=== PATIENT | female | born 1940 | race Caucasian/White ===

== ENCOUNTER 2023-01-25 12:50 | Emergency (ER) | payer MEDICARE, BC ==
[2023-01-25 13:11] LABS: BASOPHILS ABSOLUTE AUTO 0.03 10^3/uL (0.00-0.50); BASOPHILS PERCENT AUTO 0.3 % (0-1); EOSINOPHILS ABSOLUTE AUTO 0.16 10^3/uL (0.00-1.50); EOSINOPHILS PERCENT AUTO 1.6 % (0-6); HEMATOCRIT 34.4 % (37.0-47.0); HEMOGLOBIN 11.8 g/dL (12.0-16.0); IMMATURE GRAN ABSOLUTE AUTO 0.09 10^3/uL (0.00-0.49); IMMATURE GRAN PERCENT AUTO 0.9 % (0.0-4.9); LYMPHOCYTES ABSOLUTE AUTO 2.47 10^3/uL (0.60-5.00); LYMPHOCYTES PERCENT AUTO 24.5 % (24-44); MEAN CORPUSCULAR HEMOGLOBIN 30.5 pg (27.0-32.0); MEAN CORPUSCULAR HGB CONC 34.3 g/dL (32.0-36.0); MEAN CORPUSCULAR VOLUME 88.9 fL (83.0-97.0); MONOCYTES ABSOLUTE AUTO 0.78 10^3/uL (0.00-1.50); MONOCYTES PERCENT AUTO 7.7 % (0-10); NEUTROPHILS ABSOLUTE AUTO 6.56 x10^3/uL (1.80-8.00); PLATELET COUNT,PLT 394 10^3/uL (150-400); RED BLOOD CELL COUNT 3.87 x10^6/uL (4.00-5.50); WHITE BLOOD CELL COUNT,WBC 10.1 10^3/uL (4.0-11.0)
[2023-01-25] MEDS ORDERED: amLODIPine 2.5 MG Tab PO STA (13:18)
[2023-01-25 13:30] LABS: ALBUMIN 3.5 g/dL (3.4-5.0); BILIRUBIN TOTAL 0.5 mg/dL (0.0-1.0); CALCIUM 9.1 mg/dL (8.4-10.1); CREATININE 0.9 mg/dL (0.6-1.0); EST CRCL DRUG DOSING (CG) 34.02 mL/min; POTASSIUM,K 3.9 mEq/L (3.5-5.0); PROTEIN TOTAL,TP 7.7 g/dL (6.4-8.2)
[2023-01-25] MEDS ORDERED: Sodium Chloride 0.9% 1,000 ML IV SCH (13:30)
[2023-01-25 13:37] LABS: PTT,PARTIAL THROMBOPLSTIN TIME 25.4 SEC (20.0-30.0)
[2023-01-25 13:56] LABS: PROTHROMBIN TIME 10.1 SEC (9.3-11.3)
[2023-01-25 14:00] LABS: APPEARANCE,URINE CLOUDY (CLEAR); BILIRUBIN,URINE NEGATIVE (NEGATIVE); COLOR,URINE YELLOW (YELLOW); GLUCOSE,URINE NEGATIVE (NEGATIVE); KETONES,URINE NEGATIVE (NEGATIVE); LEUKOCYTE ESTERASE,URINE NEGATIVE (NEGATIVE); NITRITE,URINE POSITIVE (NEGATIVE); OCCULT BLOOD,URINE NEGATIVE (NEGATIVE); PH,URINE 6.5 (4.5-8.0); PROTEIN,URINE 100 mg/dL (NEGATIVE); UROBILINOGEN,URINE 0.2 EU/dL (0.2-1.0)
[2023-01-25] MEDS ORDERED: Metoprolol Tartrate 5 MG/5 ML SDV IVPUSH ONE ×2 (14:04→15:00)
[2023-01-25 14:10] LABS: BACTERIA,URINE MANY /HPF (NOT SEEN); EPITHELIAL CELLS,URINE FEW /HPF (NOT SEEN)
[2023-01-25] MEDS ORDERED: cefTRIAXone 1 GM Vial IVPUSH ONE (14:22)
[2023-01-25 16:17] VITALS: BP 173/77; PULSE 68
== END 2023-01-25 18:00 | disposition home or self-care (01) ==
LOC: CC.ED 12:50
DX: N30.00 Acute cystitis without hematuria (principal); I10 Essential (primary) hypertension; E78.00 Pure hypercholesterolemia, unspecified; M19.90 Unspecified osteoarthritis, unspecified site; E03.9 Hypothyroidism, unspecified; Z79.899 Other long term (current) drug therapy; Z79.82 Long term (current) use of aspirin; Z20.822 Contact with and (suspected) exposure to COVID-19
CPT/HCPCS: 36415; 71045; 80053; 81001; 82150; 83690; 84484; 85025; 85610; 85730; 87086; 87088; 87186; 87804; 93005; 96361; 96374; 96375; 96376; 99285-25; A9270-GY; J0696; J3490; J7030; U0002

== ENCOUNTER 2023-02-03 06:40 | Emergency (ER) | payer MEDICARE, BC ==
[2023-02-03 07:02] VITALS: PULSE 83
[2023-02-03 07:27] VITALS: BP 160/88
[2023-02-03] MEDS: Ondansetron 4 MG/2 ML SDV IVPUSH ONE (07:41)
[2023-02-03] MEDS: Famotidine 20 MG/2 ML SDV IVPUSH ONE (07:41)
[2023-02-03] MEDS: Sodium Chloride 0.9% 500 ML IV SCH (07:42)
[2023-02-03 07:48] LABS: APPEARANCE,URINE CLEAR (CLEAR); BILIRUBIN,URINE NEGATIVE (NEGATIVE); COLOR,URINE YELLOW (YELLOW); GLUCOSE,URINE NEGATIVE (NEGATIVE); KETONES,URINE NEGATIVE (NEGATIVE); LEUKOCYTE ESTERASE,URINE NEGATIVE (NEGATIVE); NITRITE,URINE NEGATIVE (NEGATIVE); OCCULT BLOOD,URINE NEGATIVE (NEGATIVE); PROTEIN,URINE NEGATIVE (NEGATIVE); UROBILINOGEN,URINE 0.2 EU/dL (0.2-1.0)
[2023-02-03] MEDS: Ketorolac 30 MG/ML SDV IVPUSH ONE (07:48)
[2023-02-03 07:59] LABS: BASOPHILS ABSOLUTE AUTO 0.08 10^3/uL (0.00-0.50); BASOPHILS PERCENT AUTO 0.8 % (0-1); EOSINOPHILS ABSOLUTE AUTO 0.31 10^3/uL (0.00-1.50); EOSINOPHILS PERCENT AUTO 3.1 % (0-6); HEMATOCRIT 33.4 % (37.0-47.0); HEMOGLOBIN 11.4 g/dL (12.0-16.0); IMMATURE GRAN ABSOLUTE AUTO 0.14 10^3/uL (0.00-0.49); IMMATURE GRAN PERCENT AUTO 1.4 % (0.0-4.9); LYMPHOCYTES ABSOLUTE AUTO 2.39 10^3/uL (0.60-5.00); LYMPHOCYTES PERCENT AUTO 24.1 % (24-44); MEAN CORPUSCULAR HEMOGLOBIN 31.1 pg (27.0-32.0); MEAN CORPUSCULAR HGB CONC 34.1 g/dL (32.0-36.0); MEAN CORPUSCULAR VOLUME 91.3 fL (83.0-97.0); MONOCYTES ABSOLUTE AUTO 0.99 10^3/uL (0.00-1.50); NEUTROPHILS ABSOLUTE AUTO 5.99 x10^3/uL (1.80-8.00); NEUTROPHILS PERCENT AUTO 60.6 % (41-71); PLATELET COUNT,PLT 374 10^3/uL (150-400); RED BLOOD CELL COUNT 3.66 x10^6/uL (4.00-5.50); WHITE BLOOD CELL COUNT,WBC 9.9 10^3/uL (4.0-11.0)
[2023-02-03] MEDS: Metoclopramide 10 MG/2 ML SDV IVPUSH ONE (08:16)
[2023-02-03 08:20] LABS: ALBUMIN 3.3 g/dL (3.4-5.0); BILIRUBIN TOTAL 0.3 mg/dL (0.0-1.0); CALCIUM 8.7 mg/dL (8.4-10.1); CREATININE 1.2 mg/dL (0.6-1.0); EST CRCL DRUG DOSING (CG) 25.51 mL/min; POTASSIUM,K 4.5 mEq/L (3.5-5.0)
[2023-02-03 08:26] LABS: BACTERIA,URINE OCCASIONAL /HPF (NOT SEEN); EPITHELIAL CELLS,URINE MODERATE /HPF (NOT SEEN); RBC,URINE NOT SEEN /HPF (0-5); WBC,URINE 0-5 /HPF (0-5)
== END 2023-02-03 08:45 | disposition home or self-care (01) ==
LOC: CC.ED 06:40
DX: N30.00 Acute cystitis without hematuria (principal); J06.9 Acute upper respiratory infection, unspecified; E78.00 Pure hypercholesterolemia, unspecified; I10 Essential (primary) hypertension; K21.9 Gastro-esophageal reflux disease without esophagitis; M19.90 Unspecified osteoarthritis, unspecified site; E03.9 Hypothyroidism, unspecified; Z79.899 Other long term (current) drug therapy; Z79.82 Long term (current) use of aspirin; Z20.822 Contact with and (suspected) exposure to COVID-19
CPT/HCPCS: 36415; 80053; 81001; 85025; 96374; 96375; 99284; 99284-25; J1885; J2405; J2765; J3490; J7040; U0002

== ENCOUNTER 2023-02-08 09:48 | Observation (INO) | payer MEDICARE, BC ==
[2023-02-08 11:55] LABS: BASOPHILS ABSOLUTE AUTO 0.06 10^3/uL (0.00-0.50); BASOPHILS PERCENT AUTO 0.5 % (0-1); EOSINOPHILS ABSOLUTE AUTO 0.15 10^3/uL (0.00-1.50); EOSINOPHILS PERCENT AUTO 1.2 % (0-6); HEMATOCRIT 33.1 % (37.0-47.0); HEMOGLOBIN 11.4 g/dL (12.0-16.0); IMMATURE GRAN ABSOLUTE AUTO 0.21 10^3/uL (0.00-0.49); IMMATURE GRAN PERCENT AUTO 1.7 % (0.0-4.9); LYMPHOCYTES ABSOLUTE AUTO 3.03 10^3/uL (0.60-5.00); LYMPHOCYTES PERCENT AUTO 23.9 % (24-44); MEAN CORPUSCULAR HEMOGLOBIN 30.8 pg (27.0-32.0); MEAN CORPUSCULAR HGB CONC 34.4 g/dL (32.0-36.0); MEAN CORPUSCULAR VOLUME 89.5 fL (83.0-97.0); MONOCYTES ABSOLUTE AUTO 1.03 10^3/uL (0.00-1.50); MONOCYTES PERCENT AUTO 8.1 % (0-10); NEUTROPHILS ABSOLUTE AUTO 8.18 x10^3/uL (1.80-8.00); NEUTROPHILS PERCENT AUTO 64.6 % (41-71); PLATELET COUNT,PLT 364 10^3/uL (150-400); WHITE BLOOD CELL COUNT,WBC 12.7 10^3/uL (4.0-11.0)
[2023-02-08] MEDS ORDERED: Ondansetron 4 MG/2 ML SDV IVPUSH ONE (12:00)
[2023-02-08] MEDS ORDERED: Lactated Ringers 1,000 ML IV ONE (12:00)
[2023-02-08 12:09] LABS: ALANINE AMINOTRANSFERASE,ALT 42 U/L (12-78); ALBUMIN 3.5 g/dL (3.4-5.0); ALKALINE PHOSPHATASE 104 U/L (46-116); AMYLASE 43 U/L (25-115); ASPARTATE AMNIOTRANSFERASE,AST 27 U/L (15-37); BILIRUBIN TOTAL 0.3 mg/dL (0.0-1.0); BLOOD UREA NITROGEN,BUN 27 mg/dL (7-18); C-REACTIVE PROTEIN 0.21 mg/dL (<=0.30); CALCIUM 9.6 mg/dL (8.4-10.1); CARBON DIOXIDE,CO2 26 mmol/L (21-32); CHLORIDE,CL 93 mEq/L (98-106); CREATININE 1.3 mg/dL (0.6-1.0); GLUCOSE RANDOM 131 mg/dL (75-99); LIPASE 89 U/L (16-77); POTASSIUM,K 4.8 mEq/L (3.5-5.0); PROTEIN TOTAL,TP 7.1 g/dL (6.4-8.2); SODIUM,NA 129 mEq/L (136-145)
[2023-02-08] MEDS ORDERED: Iopamidol 755 Mg/ML 100 ML Bottle IVPUSH ONE (12:33)
[2023-02-08 12:44] LABS: ESTIMATED GFR 41 mL/min (>=60)
[2023-02-08 13:17] LABS: APPEARANCE,URINE CLEAR (CLEAR); BILIRUBIN,URINE NEGATIVE (NEGATIVE); COLOR,URINE YELLOW (YELLOW); GLUCOSE,URINE NEGATIVE (NEGATIVE); KETONES,URINE NEGATIVE (NEGATIVE); LEUKOCYTE ESTERASE,URINE NEGATIVE (NEGATIVE); NITRITE,URINE NEGATIVE (NEGATIVE); OCCULT BLOOD,URINE NEGATIVE (NEGATIVE); PROTEIN,URINE NEGATIVE (NEGATIVE); UROBILINOGEN,URINE 0.2 EU/dL (0.2-1.0)
[2023-02-08] MEDS ORDERED: Pantoprazole 40 MG Vial IVPUSH ONE (15:50)
[2023-02-08] MEDS ORDERED: Ondansetron 4 MG/2 ML SDV IV PRN (15:50)
[2023-02-08] MEDS ORDERED: Ondansetron 4 MG Tab.DIS PO PRN (15:50)
[2023-02-08] MEDS: Sodium Chloride 0.9% 1,000 ML IV SCH (17:16)
[2023-02-08] MEDS ORDERED: Meloxicam 7.5 MG Tab PO PRN (19:53)
[2023-02-08] MEDS ORDERED: Melatonin 3 MG Tab PO SCH (20:00)
[2023-02-08] MEDS ORDERED: atorvaSTATin 10 MG Tab PO SCH (20:00)
[2023-02-08] MEDS ORDERED: Enoxaparin 30 MG/0.3 ML Syringe SUBCUT SCH (20:00)
[2023-02-08] MEDS ORDERED: amLODIPine 2.5 MG Tab PO SCH (20:00)
[2023-02-08] MEDS: Acetaminophen 325 MG Tab PO PRN (20:58)
[2023-02-08] MEDS: Gabapentin 300 MG Cap PO SCH (21:11)
[2023-02-09] MEDS: Acetaminophen 325 MG Tab PO PRN (03:43)
[2023-02-09] MEDS: Sodium Chloride 0.9% 1,000 ML IV SCH (06:08)
[2023-02-09 07:16] LABS: BASOPHILS ABSOLUTE AUTO 0.04 10^3/uL (0.00-0.50); BASOPHILS PERCENT AUTO 0.5 % (0-1); EOSINOPHILS ABSOLUTE AUTO 0.23 10^3/uL (0.00-1.50); EOSINOPHILS PERCENT AUTO 2.7 % (0-6); HEMATOCRIT 29.2 % (37.0-47.0); IMMATURE GRAN ABSOLUTE AUTO 0.08 10^3/uL (0.00-0.49); IMMATURE GRAN PERCENT AUTO 0.9 % (0.0-4.9); LYMPHOCYTES ABSOLUTE AUTO 2.55 10^3/uL (0.60-5.00); LYMPHOCYTES PERCENT AUTO 29.9 % (24-44); MEAN CORPUSCULAR HEMOGLOBIN 30.8 pg (27.0-32.0); MEAN CORPUSCULAR HGB CONC 34.2 g/dL (32.0-36.0); MEAN CORPUSCULAR VOLUME 89.8 fL (83.0-97.0); MONOCYTES ABSOLUTE AUTO 0.68 10^3/uL (0.00-1.50); NEUTROPHILS ABSOLUTE AUTO 4.96 x10^3/uL (1.80-8.00); PLATELET COUNT,PLT 290 10^3/uL (150-400); RED BLOOD CELL COUNT 3.25 x10^6/uL (4.00-5.50); WHITE BLOOD CELL COUNT,WBC 8.5 10^3/uL (4.0-11.0)
[2023-02-09] MEDS: Gabapentin 300 MG Cap PO SCH ×2 (07:44→15:34)
[2023-02-09 07:54] LABS: CALCIUM 8.5 mg/dL (8.4-10.1); EST CRCL DRUG DOSING (CG) 30.62 mL/min
[2023-02-09] MEDS ORDERED: Levothyroxine 150 MCG Tab PO SCH (08:00)
[2023-02-09] MEDS ORDERED: Sertraline 100 MG Tab PO SCH (08:00)
[2023-02-09] MEDS ORDERED: Pantoprazole 40 MG Tab.CR PO SCH (08:00)
[2023-02-09 16:09] VITALS: BP 135/54; PULSE 76
== END 2023-02-09 17:30 | disposition home or self-care (01) ==
LOC: CC.ACU 09:48 → CC.FCMC 09:48 → UNDOADMOB 15:07 → CC.MS 15:07
PROVIDERS: ADMIT Nurse Practitioner Family; ATTEND Nurse Practitioner Family
DX: K29.00 Acute gastritis without bleeding (principal); N39.0 Urinary tract infection, site not specified; R53.83 Other fatigue; N17.9 Acute kidney failure, unspecified; R93.89 Abnormal findings on diagnostic imaging of other specified body structures; E87.1 Hypo-osmolality and hyponatremia; R53.1 Weakness; E78.00 Pure hypercholesterolemia, unspecified; I10 Essential (primary) hypertension; K21.9 Gastro-esophageal reflux disease without esophagitis; M19.90 Unspecified osteoarthritis, unspecified site; E03.9 Hypothyroidism, unspecified; Z79.890 Hormone replacement therapy; Z79.899 Other long term (current) drug therapy; Z88.8 Allergy status to other drugs, medicaments and biological substances; Z96.659 Presence of unspecified artificial knee joint; Z98.890 Other specified postprocedural states
CPT/HCPCS: 36415; 71046; 74177; 80048; 80053; 81003; 82150; 83605; 83690; 85025; 86140; 96372; 96374; A9270-GY; C9113; G0378; J1650; J2405; J7030; J7120; Q9967

== ENCOUNTER 2023-05-03 10:54 | Observation (INO) | payer MEDICARE, BC ==
[2023-05-03] MEDS ORDERED: Docusate Sodium 100 MG Cap PO PRN (13:25)
[2023-05-03] MEDS ORDERED: Sodium Chloride 0.9% 1,000 ML IV STA (13:25)
[2023-05-03] MEDS ORDERED: Promethazine 12.5 MG in Sodium Chloride 0.9% 50 ML IV PRN (13:25)
[2023-05-03] MEDS ORDERED: Acetaminophen 325 MG Tab PO PRN (13:25)
[2023-05-03] MEDS ORDERED: Ondansetron 4 MG/2 ML SDV IV PRN (13:25)
[2023-05-03] MEDS ORDERED: Polyethylene Glycol 3350 Powder 17 GM Packet PO PRN (13:25)
[2023-05-03] MEDS ORDERED: Ondansetron 4 MG Tab.DIS PO PRN (13:25)
[2023-05-03] MEDS ORDERED: Meclizine 12.5 MG Tab PO PRN (13:30)
[2023-05-03] MEDS: Dexamethasone 4 MG Tab PO SCH (15:16)
[2023-05-03] MEDS ORDERED: Non-Formulary Medication 1 Each (Brimonidine [Alphagan P 0.1% Ophth Soln] 10 ML Bottle) EYEBOTH SCH (20:00)
[2023-05-03] MEDS ORDERED: Non-Formulary Medication 1 Each (Fish Oil/Omega-3 Fatty Acids [Fish Oil 1,000 Mg] 1 GM Cap PO SCH (20:00)
[2023-05-03] MEDS ORDERED: Non-Formulary Medication 1 Each (Bimatoprost [Lumigan 0.01% Ophth Soln] 2.5 ML Bottle) EYEBOTH SCH (20:00)
[2023-05-03] MEDS: amLODIPine 10 MG Tab PO SCH (20:40)
[2023-05-03] MEDS: Beta-Carotene (Vitamin A) w/Vitamin C & E plus Minerals Tab PO SCH (20:40)
[2023-05-03] MEDS: atorvaSTATin 10 MG Tab PO SCH (20:40)
[2023-05-03] MEDS: Gabapentin 300 MG Cap PO SCH (20:40)
[2023-05-03] MEDS: Calcium Carbonate/Vitamin D3 1250 MG-5 MCG Tab PO SCH (20:41)
[2023-05-03] MEDS: Melatonin 3 MG Tab PO PRN (20:47)
[2023-05-04] MEDS: Levothyroxine 88 MCG Tab PO SCH (06:08)
[2023-05-04] MEDS: Pantoprazole 40 MG Tab.CR PO SCH (06:08)
[2023-05-04] MEDS: Cholecalciferol (Vitamin D3) 25 MCG Tab PO SCH (07:15)
[2023-05-04] MEDS: Sertraline 100 MG Tab PO SCH (07:16)
[2023-05-04] MEDS: Beta-Carotene (Vitamin A) w/Vitamin C & E plus Minerals Tab PO SCH ×2 (07:16→19:31)
[2023-05-04] MEDS: Gabapentin 300 MG Cap PO SCH ×3 (07:16→19:31)
[2023-05-04] MEDS: Ascorbic Acid 500 MG Tab PO SCH (07:16)
[2023-05-04] MEDS: Calcium Carbonate/Vitamin D3 1250 MG-5 MCG Tab PO SCH ×2 (07:16→19:31)
[2023-05-04] MEDS: Dexamethasone 4 MG Tab PO SCH (07:16)
[2023-05-04 08:00] LABS: CALCIUM 9.4 mg/dL (8.4-10.1); CREATININE 0.8 mg/dL (0.6-1.0); EST CRCL DRUG DOSING (CG) 38.27 mL/min; POTASSIUM,K 3.8 mEq/L (3.5-5.0)
[2023-05-04 08:03] LABS: BASOPHILS ABSOLUTE AUTO 0.02 10^3/uL (0.00-0.50); BASOPHILS PERCENT AUTO 0.2 % (0-1); EOSINOPHILS ABSOLUTE AUTO 0.01 10^3/uL (0.00-1.50); EOSINOPHILS PERCENT AUTO 0.1 % (0-6); HEMATOCRIT 32.3 % (37.0-47.0); HEMOGLOBIN 11.1 g/dL (12.0-16.0); IMMATURE GRAN ABSOLUTE AUTO 0.03 10^3/uL (0.00-0.49); IMMATURE GRAN PERCENT AUTO 0.3 % (0.0-4.9); LYMPHOCYTES ABSOLUTE AUTO 2.32 10^3/uL (0.60-5.00); LYMPHOCYTES PERCENT AUTO 24.6 % (24-44); MEAN CORPUSCULAR HEMOGLOBIN 31.2 pg (27.0-32.0); MEAN CORPUSCULAR HGB CONC 34.4 g/dL (32.0-36.0); MEAN CORPUSCULAR VOLUME 90.7 fL (83.0-97.0); MONOCYTES ABSOLUTE AUTO 0.55 10^3/uL (0.00-1.50); MONOCYTES PERCENT AUTO 5.8 % (0-10); NEUTROPHILS ABSOLUTE AUTO 6.52 x10^3/uL (1.80-8.00); PLATELET COUNT,PLT 296 10^3/uL (150-400); RED BLOOD CELL COUNT 3.56 x10^6/uL (4.00-5.50); WHITE BLOOD CELL COUNT,WBC 9.5 10^3/uL (4.0-11.0)
[2023-05-04] MEDS: atorvaSTATin 10 MG Tab PO SCH (19:31)
[2023-05-04] MEDS: amLODIPine 10 MG Tab PO SCH (19:31)
[2023-05-04] MEDS: Melatonin 3 MG Tab PO PRN (23:01)
[2023-05-05] MEDS: Levothyroxine 88 MCG Tab PO SCH (06:04)
[2023-05-05] MEDS: Pantoprazole 40 MG Tab.CR PO SCH (06:04)
[2023-05-05] MEDS: Calcium Carbonate/Vitamin D3 1250 MG-5 MCG Tab PO SCH (08:14)
[2023-05-05] MEDS: Beta-Carotene (Vitamin A) w/Vitamin C & E plus Minerals Tab PO SCH (08:14)
[2023-05-05] MEDS: Cholecalciferol (Vitamin D3) 25 MCG Tab PO SCH (08:14)
[2023-05-05] MEDS: Sertraline 100 MG Tab PO SCH (08:14)
[2023-05-05] MEDS: Ascorbic Acid 500 MG Tab PO SCH (08:14)
[2023-05-05] MEDS: Dexamethasone 4 MG Tab PO SCH (08:14)
[2023-05-05] MEDS: Gabapentin 300 MG Cap PO SCH (08:14)
[2023-05-05 09:17] VITALS: BP 146/62; PULSE 64
== END 2023-05-05 10:15 | disposition home or self-care (01) ==
LOC: CC.LAB 10:54 → CC.MS 13:02 → UNDOADMOB 13:02 → CC.MS 13:25
PROVIDERS: ADMIT Nurse Practitioner; ATTEND Nurse Practitioner
DX: R42 Dizziness and giddiness (principal); I10 Essential (primary) hypertension; E78.00 Pure hypercholesterolemia, unspecified; E03.9 Hypothyroidism, unspecified; K21.9 Gastro-esophageal reflux disease without esophagitis; F32.A Depression, unspecified; D32.9 Benign neoplasm of meninges, unspecified; Z79.890 Hormone replacement therapy; Z79.899 Other long term (current) drug therapy
CPT/HCPCS: 36415; 70450; 80048; 81001; 85025; 93005; 97161-GP; A9270-GY; G0378; J7030; J8540

== ENCOUNTER 2023-07-05 14:12 | Observation (INO) | payer MEDICARE, BC ==
[2023-07-05 14:45] LABS: BASOPHILS ABSOLUTE AUTO 0.03 10^3/uL (0.00-0.50); BASOPHILS PERCENT AUTO 0.4 % (0-1); EOSINOPHILS ABSOLUTE AUTO 0.05 10^3/uL (0.00-1.50); EOSINOPHILS PERCENT AUTO 0.7 % (0-6); HEMATOCRIT 35.3 % (37.0-47.0); HEMOGLOBIN 12.2 g/dL (12.0-16.0); IMMATURE GRAN ABSOLUTE AUTO 0.01 10^3/uL (0.00-0.49); IMMATURE GRAN PERCENT AUTO 0.1 % (0.0-4.9); LYMPHOCYTES ABSOLUTE AUTO 1.57 10^3/uL (0.60-5.00); LYMPHOCYTES PERCENT AUTO 21.4 % (24-44); MEAN CORPUSCULAR HEMOGLOBIN 31.4 pg (27.0-32.0); MEAN CORPUSCULAR HGB CONC 34.6 g/dL (32.0-36.0); MEAN CORPUSCULAR VOLUME 90.7 fL (83.0-97.0); MONOCYTES ABSOLUTE AUTO 0.58 10^3/uL (0.00-1.50); MONOCYTES PERCENT AUTO 7.9 % (0-10); NEUTROPHILS ABSOLUTE AUTO 5.08 x10^3/uL (1.80-8.00); NEUTROPHILS PERCENT AUTO 69.5 % (41-71); PLATELET COUNT,PLT 353 10^3/uL (150-400); RED BLOOD CELL COUNT 3.89 x10^6/uL (4.00-5.50); WHITE BLOOD CELL COUNT,WBC 7.3 10^3/uL (4.0-11.0)
[2023-07-05] MEDS ORDERED: Metoprolol Tartrate 5 MG/5 ML SDV IVPUSH ONE (14:49)
[2023-07-05] MEDS: Sodium Chloride 0.9% 1,000 ML IV SCH (14:57)
[2023-07-05 15:10] LABS: ALBUMIN 3.3 g/dL (3.4-5.0); BILIRUBIN TOTAL 0.5 mg/dL (0.0-1.0); C-REACTIVE PROTEIN 0.76 mg/dL (<=0.50); CALCIUM 9.2 mg/dL (8.4-10.1); CREATININE 0.9 mg/dL (0.6-1.0); EST CRCL DRUG DOSING (CG) 34.02 mL/min; MAGNESIUM 1.4 mg/dL (1.8-2.4); POTASSIUM,K 3.2 mEq/L (3.5-5.0); PROTEIN TOTAL,TP 7.3 g/dL (6.4-8.2); TSH ULTRASENSITIVE 0.97 uIU/mL (0.36-5.60)
[2023-07-05] MEDS ORDERED: Potassium Chloride 20 MEQ Tab.ER PO ONE (15:22)
[2023-07-05 15:27] LABS: CORONAVIRUS COVID-19 NAA NEGATIVE (NEGATIVE); INFLUENZA A NAA NEGATIVE (NEGATIVE); INFLUENZA B NAA NEGATIVE (NEGATIVE)
[2023-07-05 15:40] LABS: APPEARANCE,URINE CLEAR (CLEAR); BILIRUBIN,URINE NEGATIVE (NEGATIVE); COLOR,URINE YELLOW (YELLOW); GLUCOSE,URINE NEGATIVE (NEGATIVE); KETONES,URINE NEGATIVE (NEGATIVE); LEUKOCYTE ESTERASE,URINE NEGATIVE (NEGATIVE); NITRITE,URINE NEGATIVE (NEGATIVE); OCCULT BLOOD,URINE TRACE-INTACT (NEGATIVE); PROTEIN,URINE >=300 mg/dL (NEGATIVE); UROBILINOGEN,URINE 0.2 EU/dL (0.2-1.0)
[2023-07-05 15:46] LABS: RBC,URINE 0-5 /HPF (0-5); SQUAMOUS EPITHELIAL CELLS,UR MODERATE /HPF (NOT SEEN); WBC,URINE 0-5 /HPF (0-5)
[2023-07-05 15:47] LABS: BACTERIA,URINE FEW /HPF (NOT SEEN)
[2023-07-05] MEDS ORDERED: Ondansetron 4 MG Tab.DIS PO PRN (16:09)
[2023-07-05] MEDS ORDERED: Acetaminophen 650 MG Supp RECTAL PRN (16:09)
[2023-07-05] MEDS ORDERED: Temazepam 15 MG Cap PO PRN (16:09)
[2023-07-05] MEDS ORDERED: Ondansetron 4 MG/2 ML SDV IV PRN (16:09)
[2023-07-05] MEDS ORDERED: Polyethylene Glycol 3350 Powder 17 GM Packet PO PRN (16:09)
[2023-07-05] MEDS ORDERED: Docusate Sodium 100 MG Cap PO PRN (16:09)
[2023-07-05] MEDS: Magnesium Oxide 400 MG Tab PO SCH ×2 (16:43→20:14)
[2023-07-05] MEDS: Potassium Chloride 20 MEQ Tab.ER PO SCH (19:52)
[2023-07-05] MEDS: Gabapentin 300 MG Cap PO SCH (19:52)
[2023-07-05] MEDS: amLODIPine 10 MG Tab PO SCH (19:52)
[2023-07-05] MEDS: atorvaSTATin 10 MG Tab PO SCH (19:53)
[2023-07-05] MEDS: Acetaminophen 325 MG Tab PO PRN (19:53)
[2023-07-05] MEDS ORDERED: Non-Formulary Medication 1 Each (Fish Oil/Omega-3 Fatty Acids [Fish Oil 1,000 Mg] 1 GM Cap PO SCH (20:00)
[2023-07-06] MEDS: Sodium Chloride 0.9% 1,000 ML IV SCH ×3 (01:18→20:30)
[2023-07-06 07:41] LABS: BASOPHILS ABSOLUTE AUTO 0.04 10^3/uL (0.00-0.50); BASOPHILS PERCENT AUTO 0.5 % (0-1); EOSINOPHILS ABSOLUTE AUTO 0.25 10^3/uL (0.00-1.50); EOSINOPHILS PERCENT AUTO 3.4 % (0-6); HEMATOCRIT 32.2 % (37.0-47.0); HEMOGLOBIN 10.7 g/dL (12.0-16.0); IMMATURE GRAN ABSOLUTE AUTO 0.02 10^3/uL (0.00-0.49); IMMATURE GRAN PERCENT AUTO 0.3 % (0.0-4.9); LYMPHOCYTES ABSOLUTE AUTO 2.59 10^3/uL (0.60-5.00); LYMPHOCYTES PERCENT AUTO 35.2 % (24-44); MEAN CORPUSCULAR HEMOGLOBIN 30.9 pg (27.0-32.0); MEAN CORPUSCULAR HGB CONC 33.2 g/dL (32.0-36.0); MEAN CORPUSCULAR VOLUME 93.1 fL (83.0-97.0); MONOCYTES ABSOLUTE AUTO 0.74 10^3/uL (0.00-1.50); MONOCYTES PERCENT AUTO 10.1 % (0-10); NEUTROPHILS ABSOLUTE AUTO 3.71 x10^3/uL (1.80-8.00); NEUTROPHILS PERCENT AUTO 50.5 % (41-71); PLATELET COUNT,PLT 321 10^3/uL (150-400); RED BLOOD CELL COUNT 3.46 x10^6/uL (4.00-5.50); WHITE BLOOD CELL COUNT,WBC 7.4 10^3/uL (4.0-11.0)
[2023-07-06] MEDS: Cholecalciferol (Vitamin D3) 25 MCG Tab PO SCH (08:07)
[2023-07-06] MEDS: DULoxetine 30 MG Cap PO SCH (08:07)
[2023-07-06] MEDS: Ascorbic Acid 500 MG Tab PO SCH (08:09)
[2023-07-06] MEDS: Potassium Chloride 20 MEQ Tab.ER PO SCH ×2 (08:09→19:29)
[2023-07-06] MEDS: Gabapentin 300 MG Cap PO SCH ×3 (08:09→19:29)
[2023-07-06] MEDS: Pantoprazole 40 MG Tab.CR PO SCH (08:09)
[2023-07-06] MEDS: Levothyroxine 88 MCG Tab PO SCH (08:10)
[2023-07-06] MEDS: Magnesium Oxide 400 MG Tab PO SCH ×2 (08:10→19:31)
[2023-07-06 08:17] LABS: ALBUMIN 2.7 g/dL (3.4-5.0); BILIRUBIN TOTAL 0.4 mg/dL (0.0-1.0); CALCIUM 8.1 mg/dL (8.4-10.1); CREATININE 0.8 mg/dL (0.6-1.0); EST CRCL DRUG DOSING (CG) 38.27 mL/min; MAGNESIUM 1.5 mg/dL (1.8-2.4); POTASSIUM,K 3.7 mEq/L (3.5-5.0); PROTEIN TOTAL,TP 6.2 g/dL (6.4-8.2)
[2023-07-06] MEDS ORDERED: Magnesium Oxide 400 MG Tab PO SCH (08:30)
[2023-07-06] MEDS ORDERED: Loperamide 2 MG Cap PO PRN (10:31)
[2023-07-06] MEDS ORDERED: Enoxaparin 40 MG/0.4 ML Syringe SUBCUT SCH (12:00)
[2023-07-06] MEDS: Acetaminophen 325 MG Tab PO PRN (14:41)
[2023-07-06] MEDS: atorvaSTATin 10 MG Tab PO SCH (19:29)
[2023-07-06] MEDS: amLODIPine 10 MG Tab PO SCH (19:30)
[2023-07-07] MEDS: Sodium Chloride 0.9% 1,000 ML IV SCH (06:46)
[2023-07-07 07:42] LABS: BASOPHILS ABSOLUTE AUTO 0.02 10^3/uL (0.00-0.50); BASOPHILS PERCENT AUTO 0.2 % (0-1); EOSINOPHILS ABSOLUTE AUTO 0.26 10^3/uL (0.00-1.50); EOSINOPHILS PERCENT AUTO 3.2 % (0-6); HEMATOCRIT 31.7 % (37.0-47.0); HEMOGLOBIN 10.5 g/dL (12.0-16.0); IMMATURE GRAN ABSOLUTE AUTO 0.03 10^3/uL (0.00-0.49); IMMATURE GRAN PERCENT AUTO 0.4 % (0.0-4.9); LYMPHOCYTES ABSOLUTE AUTO 2.15 10^3/uL (0.60-5.00); LYMPHOCYTES PERCENT AUTO 26.3 % (24-44); MEAN CORPUSCULAR HEMOGLOBIN 30.9 pg (27.0-32.0); MEAN CORPUSCULAR HGB CONC 33.1 g/dL (32.0-36.0); MEAN CORPUSCULAR VOLUME 93.2 fL (83.0-97.0); MONOCYTES ABSOLUTE AUTO 0.75 10^3/uL (0.00-1.50); MONOCYTES PERCENT AUTO 9.2 % (0-10); NEUTROPHILS ABSOLUTE AUTO 4.97 x10^3/uL (1.80-8.00); NEUTROPHILS PERCENT AUTO 60.7 % (41-71); PLATELET COUNT,PLT 317 10^3/uL (150-400); WHITE BLOOD CELL COUNT,WBC 8.2 10^3/uL (4.0-11.0)
[2023-07-07] MEDS: DULoxetine 30 MG Cap PO SCH (08:06)
[2023-07-07] MEDS: Pantoprazole 40 MG Tab.CR PO SCH (08:06)
[2023-07-07] MEDS: Gabapentin 300 MG Cap PO SCH (08:07)
[2023-07-07] MEDS: Magnesium Oxide 400 MG Tab PO SCH (08:07)
[2023-07-07] MEDS: Potassium Chloride 20 MEQ Tab.ER PO SCH (08:07)
[2023-07-07] MEDS: Cholecalciferol (Vitamin D3) 25 MCG Tab PO SCH (08:08)
[2023-07-07 08:09] LABS: ALBUMIN 2.6 g/dL (3.4-5.0); BILIRUBIN TOTAL 0.4 mg/dL (0.0-1.0); CREATININE 0.8 mg/dL (0.6-1.0); EST CRCL DRUG DOSING (CG) 38.27 mL/min; MAGNESIUM 1.4 mg/dL (1.8-2.4); PROTEIN TOTAL,TP 5.9 g/dL (6.4-8.2)
[2023-07-07] MEDS: Levothyroxine 88 MCG Tab PO SCH (08:09)
[2023-07-07] MEDS: Ascorbic Acid 500 MG Tab PO SCH (08:09)
[2023-07-07 08:29] LABS: POTASSIUM,K 3.6 mEq/L (3.5-5.0)
[2023-07-07 08:37] VITALS: BP 177/82; PULSE 74
== END 2023-07-07 11:45 | disposition home or self-care (01) ==
LOC: CC.ED 14:12 → CC.MS 15:48 → UNDOADMOB 15:50 → CC.MS 15:50 → UNDOADMOB 16:08 → CC.MS 16:08
PROVIDERS: ADMIT Nurse Practitioner Family; ATTEND Nurse Practitioner Family
DX: E83.42 Hypomagnesemia (principal); E87.6 Hypokalemia; R19.7 Diarrhea, unspecified; I10 Essential (primary) hypertension; R63.0 Anorexia; R53.1 Weakness; E03.9 Hypothyroidism, unspecified; E78.00 Pure hypercholesterolemia, unspecified; Z79.890 Hormone replacement therapy; Z79.899 Other long term (current) drug therapy
CPT/HCPCS: 0240U; 36415; 71045; 80053; 81001; 83735; 84443; 84484; 85025; 86140; 87493; 93005; 93010; 97161; 97530; A9270; J1650; J3490; J7030; 99223; 99233; 99238

== ENCOUNTER 2024-05-27 11:12 | Observation (INO) | payer MEDICARE, BC ==
[2024-05-27] MEDS: Ondansetron 4 MG/2 ML SDV IVPUSH PRN (11:37)
[2024-05-27 11:39] LABS: APPEARANCE,URINE CLEAR (CLEAR); BILIRUBIN,URINE NEGATIVE (NEGATIVE); COLOR,URINE YELLOW (YELLOW); GLUCOSE,URINE NEGATIVE (NEGATIVE); KETONES,URINE NEGATIVE (NEGATIVE); LEUKOCYTE ESTERASE,URINE NEGATIVE (NEGATIVE); NITRITE,URINE NEGATIVE (NEGATIVE); OCCULT BLOOD,URINE NEGATIVE (NEGATIVE); PH,URINE 6.5 (4.5-8.0); PROTEIN,URINE NEGATIVE (NEGATIVE); UROBILINOGEN,URINE 0.2 EU/dL (0.2-1.0)
[2024-05-27 11:43] LABS: BASOPHILS ABSOLUTE AUTO 0.04 10^3/uL (0.00-0.50); BASOPHILS PERCENT AUTO 0.4 % (0-1); EOSINOPHILS ABSOLUTE AUTO 0.15 10^3/uL (0.00-1.50); EOSINOPHILS PERCENT AUTO 1.3 % (0-6); HEMATOCRIT 42.9 % (37.0-47.0); HEMOGLOBIN 14.2 g/dL (12.0-16.0); IMMATURE GRAN ABSOLUTE AUTO 0.02 10^3/uL (0.00-0.49); IMMATURE GRAN PERCENT AUTO 0.2 % (0.0-4.9); LYMPHOCYTES ABSOLUTE AUTO 3.56 10^3/uL (0.60-5.00); LYMPHOCYTES PERCENT AUTO 31.6 % (24-44); MEAN CORPUSCULAR HEMOGLOBIN 30.7 pg (27.0-32.0); MEAN CORPUSCULAR HGB CONC 33.1 g/dL (32.0-36.0); MEAN CORPUSCULAR VOLUME 92.9 fL (83.0-97.0); MONOCYTES ABSOLUTE AUTO 0.63 10^3/uL (0.00-1.50); MONOCYTES PERCENT AUTO 5.6 % (0-10); NEUTROPHILS ABSOLUTE AUTO 6.88 x10^3/uL (1.80-8.00); NEUTROPHILS PERCENT AUTO 60.9 % (41-71); PLATELET COUNT,PLT 394 10^3/uL (150-400); RED BLOOD CELL COUNT 4.62 x10^6/uL (4.00-5.50); WHITE BLOOD CELL COUNT,WBC 11.3 10^3/uL (4.0-11.0)
[2024-05-27 11:52] LABS: ALANINE AMINOTRANSFERASE,ALT 42 U/L (12-78); ALBUMIN 3.9 g/dL (3.4-5.0); ALKALINE PHOSPHATASE 145 U/L (46-116); ASPARTATE AMNIOTRANSFERASE,AST 30 U/L (15-37); BILIRUBIN TOTAL 0.5 mg/dL (0.0-1.0); BLOOD UREA NITROGEN,BUN 21 mg/dL (7-18); CALCIUM 9.4 mg/dL (8.4-10.1); CARBON DIOXIDE,CO2 27 mmol/L (21-32); CHLORIDE,CL 98 mEq/L (98-106); EST CRCL DRUG DOSING (CG) 30.08 mL/min; GLUCOSE RANDOM 171 mg/dL (75-99); POTASSIUM,K 3.9 mEq/L (3.5-5.0); SODIUM,NA 136 mEq/L (136-145)
[2024-05-27 11:53] LABS: C-REACTIVE PROTEIN < 0.50 mg/dL (<=0.50); ESTIMATED GFR 56 mL/min (>=60)
[2024-05-27] MEDS: Dexamethasone 4 MG Tab PO SCH (12:56)
[2024-05-27] MEDS ORDERED: Ondansetron 4 MG Tab.DIS PO PRN (14:00)
[2024-05-27] MEDS ORDERED: Polyethylene Glycol 3350 Powder 17 GM Packet PO PRN (14:00)
[2024-05-27] MEDS ORDERED: Docusate Sodium 100 MG Cap PO PRN (14:00)
[2024-05-27] MEDS: Gabapentin 300 MG Cap PO SCH (14:22)
[2024-05-27] MEDS: atorvaSTATin 10 MG Tab PO SCH (19:35)
[2024-05-27] MEDS: amLODIPine 2.5 MG Tab PO SCH (19:35)
[2024-05-27] MEDS: Fish Oil/Omega-3 Fatty Acids 1 Gm Cap PO SCH (19:35)
[2024-05-27] MEDS: Melatonin 3 MG Tab PO PRN (20:12)
[2024-05-28] MEDS: Acetaminophen 325 MG Tab PO PRN (00:16)
[2024-05-28 07:14] LABS: CREATININE 1.1 mg/dL (0.6-1.0); EST CRCL DRUG DOSING (CG) 27.35 mL/min; MAGNESIUM 2.1 mg/dL (1.8-2.4); POTASSIUM,K 4.1 mEq/L (3.5-5.0)
[2024-05-28 07:15] LABS: BASOPHILS ABSOLUTE AUTO 0.01 10^3/uL (0.00-0.50); BASOPHILS PERCENT AUTO 0.1 % (0-1); EOSINOPHILS ABSOLUTE AUTO 0.04 10^3/uL (0.00-1.50); EOSINOPHILS PERCENT AUTO 0.4 % (0-6); HEMATOCRIT 42.7 % (37.0-47.0); HEMOGLOBIN 14.2 g/dL (12.0-16.0); IMMATURE GRAN ABSOLUTE AUTO 0.02 10^3/uL (0.00-0.49); IMMATURE GRAN PERCENT AUTO 0.2 % (0.0-4.9); LYMPHOCYTES ABSOLUTE AUTO 2.21 10^3/uL (0.60-5.00); LYMPHOCYTES PERCENT AUTO 21.2 % (24-44); MEAN CORPUSCULAR HEMOGLOBIN 30.5 pg (27.0-32.0); MEAN CORPUSCULAR HGB CONC 33.3 g/dL (32.0-36.0); MEAN CORPUSCULAR VOLUME 91.8 fL (83.0-97.0); MONOCYTES ABSOLUTE AUTO 0.89 10^3/uL (0.00-1.50); MONOCYTES PERCENT AUTO 8.5 % (0-10); NEUTROPHILS ABSOLUTE AUTO 7.25 x10^3/uL (1.80-8.00); NEUTROPHILS PERCENT AUTO 69.6 % (41-71); PLATELET COUNT,PLT 323 10^3/uL (150-400); RED BLOOD CELL COUNT 4.65 x10^6/uL (4.00-5.50); WHITE BLOOD CELL COUNT,WBC 10.4 10^3/uL (4.0-11.0)
[2024-05-28] MEDS: Pantoprazole 40 MG Tab.CR PO SCH (07:17)
[2024-05-28] MEDS: Levothyroxine 88 MCG Tab PO SCH (07:17)
[2024-05-28] MEDS: Ascorbic Acid 500 MG Tab PO SCH (07:56)
[2024-05-28] MEDS: Cholecalciferol (Vitamin D3) 25 MCG Tab PO SCH (07:56)
[2024-05-28] MEDS: DULoxetine 30 MG Cap PO SCH (07:56)
[2024-05-28 08:16] VITALS: BP 188/85; PULSE 77
[2024-05-28] MEDS: Alum Hydrox/Mag Hydrox/Simeth 30 ML, Lidocaine 2% 15 ML PO ONE (09:10)
== END 2024-05-28 15:35 | disposition home or self-care (01) ==
LOC: CC.ED 11:12 → CC.MS 13:04 → CC.ED 13:22
PROVIDERS: ADMIT Nurse Practitioner; ATTEND Nurse Practitioner
DX: R42 Dizziness and giddiness (principal); R11.0 Nausea; D32.9 Benign neoplasm of meninges, unspecified; E78.00 Pure hypercholesterolemia, unspecified; E03.9 Hypothyroidism, unspecified; I10 Essential (primary) hypertension; Z79.899 Other long term (current) drug therapy; Z79.890 Hormone replacement therapy; Z20.822 Contact with and (suspected) exposure to COVID-19
CPT/HCPCS: 36415; 80048; 80053; 81003; 83605; 83735; 85025; 86140; 87428-QW; 93005; 96374; 99223; 99239; 99285-25; A9270-GY; G0378; J2405; J8540

== ENCOUNTER 2024-07-10 09:50 | Emergency (ER) | payer MEDICARE, BC ==
[2024-07-10 09:55] VITALS: BP 191/93; PULSE 87
[2024-07-10 10:21] LABS: APPEARANCE,URINE CLEAR (CLEAR); BASOPHILS ABSOLUTE AUTO 0.02 10^3/uL (0.00-0.50); BASOPHILS PERCENT AUTO 0.2 % (0-1); BILIRUBIN,URINE NEGATIVE (NEGATIVE); COLOR,URINE YELLOW (YELLOW); EOSINOPHILS ABSOLUTE AUTO 0.22 10^3/uL (0.00-1.50); EOSINOPHILS PERCENT AUTO 2.4 % (0-6); GLUCOSE,URINE NEGATIVE (NEGATIVE); HEMATOCRIT 40.7 % (37.0-47.0); HEMOGLOBIN 13.7 g/dL (12.0-16.0); IMMATURE GRAN PERCENT AUTO 1.1 % (0.0-4.9); KETONES,URINE TRACE mg/dL (NEGATIVE); LEUKOCYTE ESTERASE,URINE NEGATIVE (NEGATIVE); LYMPHOCYTES ABSOLUTE AUTO 1.82 10^3/uL (0.60-5.00); LYMPHOCYTES PERCENT AUTO 20.1 % (24-44); MEAN CORPUSCULAR HEMOGLOBIN 31.4 pg (27.0-32.0); MEAN CORPUSCULAR HGB CONC 33.7 g/dL (32.0-36.0); MEAN CORPUSCULAR VOLUME 93.3 fL (83.0-97.0); MONOCYTES ABSOLUTE AUTO 0.69 10^3/uL (0.00-1.50); MONOCYTES PERCENT AUTO 7.6 % (0-10); NEUTROPHILS ABSOLUTE AUTO 6.19 x10^3/uL (1.80-8.00); NEUTROPHILS PERCENT AUTO 68.6 % (41-71); NITRITE,URINE NEGATIVE (NEGATIVE); OCCULT BLOOD,URINE NEGATIVE (NEGATIVE); PLATELET COUNT,PLT 262 10^3/uL (150-400); PROTEIN,URINE NEGATIVE (NEGATIVE); RED BLOOD CELL COUNT 4.36 x10^6/uL (4.00-5.50); UROBILINOGEN,URINE 0.2 EU/dL (0.2-1.0)
[2024-07-10 10:38] LABS: ALBUMIN 3.1 g/dL (3.4-5.0); BILIRUBIN TOTAL 0.7 mg/dL (0.0-1.0); CALCIUM 9.3 mg/dL (8.4-10.1); CREATININE 0.9 mg/dL (0.6-1.0); EST CRCL DRUG DOSING (CG) 33.42 mL/min; MAGNESIUM 1.8 mg/dL (1.8-2.4); POTASSIUM,K 4.3 mEq/L (3.5-5.0); PROTEIN TOTAL,TP 7.3 g/dL (6.4-8.2)
[2024-07-10] MEDS: Sodium Chloride 0.9% 500 ML IV SCH (11:32)
== END 2024-07-10 14:05 | disposition home or self-care (01) ==
LOC: CC.ED 09:50
DX: R42 Dizziness and giddiness (principal); I10 Essential (primary) hypertension; E78.00 Pure hypercholesterolemia, unspecified; K21.9 Gastro-esophageal reflux disease without esophagitis; E03.9 Hypothyroidism, unspecified; Z79.890 Hormone replacement therapy; Z79.899 Other long term (current) drug therapy
CPT/HCPCS: 36415; 80053; 81003; 83735; 85025; 99284; 99285; J7040

== ENCOUNTER 2024-07-16 12:05 | Inpatient (IN) | payer MEDICARE, BC ==
[2024-07-16 12:35] LABS: BASOPHILS ABSOLUTE AUTO 0.03 10^3/uL (0.00-0.50); BASOPHILS PERCENT AUTO 0.3 % (0-1); EOSINOPHILS ABSOLUTE AUTO 0.25 10^3/uL (0.00-1.50); EOSINOPHILS PERCENT AUTO 2.3 % (0-6); HEMATOCRIT 36.8 % (37.0-47.0); HEMOGLOBIN 12.8 g/dL (12.0-16.0); IMMATURE GRAN PERCENT AUTO 0.9 % (0.0-4.9); LYMPHOCYTES ABSOLUTE AUTO 1.96 10^3/uL (0.60-5.00); LYMPHOCYTES PERCENT AUTO 18.4 % (24-44); MEAN CORPUSCULAR HEMOGLOBIN 31.7 pg (27.0-32.0); MEAN CORPUSCULAR HGB CONC 34.8 g/dL (32.0-36.0); MEAN CORPUSCULAR VOLUME 91.1 fL (83.0-97.0); MONOCYTES ABSOLUTE AUTO 0.92 10^3/uL (0.00-1.50); MONOCYTES PERCENT AUTO 8.6 % (0-10); NEUTROPHILS ABSOLUTE AUTO 7.41 x10^3/uL (1.80-8.00); NEUTROPHILS PERCENT AUTO 69.5 % (41-71); PLATELET COUNT,PLT 359 10^3/uL (150-400); RED BLOOD CELL COUNT 4.04 x10^6/uL (4.00-5.50); WHITE BLOOD CELL COUNT,WBC 10.7 10^3/uL (4.0-11.0)
[2024-07-16 12:48] LABS: APPEARANCE,URINE CLOUDY (CLEAR); BILIRUBIN,URINE NEGATIVE (NEGATIVE); COLOR,URINE YELLOW (YELLOW); GLUCOSE,URINE NEGATIVE (NEGATIVE); KETONES,URINE TRACE mg/dL (NEGATIVE); LEUKOCYTE ESTERASE,URINE NEGATIVE (NEGATIVE); NITRITE,URINE NEGATIVE (NEGATIVE); OCCULT BLOOD,URINE NEGATIVE (NEGATIVE); PH,URINE 5.5 (4.5-8.0); PROTEIN,URINE TRACE mg/dL (NEGATIVE); UROBILINOGEN,URINE 0.2 EU/dL (0.2-1.0)
[2024-07-16 12:54] LABS: RBC,URINE 0-5 /HPF (0-5)
[2024-07-16 12:54] LABS: ALANINE AMINOTRANSFERASE,ALT 50 U/L (12-78); ALBUMIN 2.7 g/dL (3.4-5.0); ALKALINE PHOSPHATASE 124 U/L (46-116); ASPARTATE AMNIOTRANSFERASE,AST 26 U/L (15-37); BILIRUBIN TOTAL 0.5 mg/dL (0.0-1.0); BLOOD UREA NITROGEN,BUN 17 mg/dL (7-18); CARBON DIOXIDE,CO2 27 mmol/L (21-32); CHLORIDE,CL 94 mEq/L (98-106); CREATINE KINASE,CK 64 U/L (21-215); CREATININE 0.9 mg/dL (0.6-1.0); ESTIMATED GFR 63 mL/min (>=60); GLUCOSE RANDOM 141 mg/dL (75-99); POTASSIUM,K 3.5 mEq/L (3.5-5.0); PROTEIN TOTAL,TP 6.9 g/dL (6.4-8.2); SODIUM,NA 133 mEq/L (136-145)
[2024-07-16 12:55] LABS: BACTERIA,URINE MANY /HPF (NOT SEEN); EPITHELIAL CELLS,URINE FEW /HPF (NOT SEEN)
[2024-07-16 13:06] LABS: INR 0.9 (0.92-1.18); PROTHROMBIN TIME 9.4 SEC (9.3-11.3); PTT,PARTIAL THROMBOPLSTIN TIME 26.1 SEC (20.0-30.0)
[2024-07-16] MEDS: Dexamethasone 4 MG/ML SDV IVPUSH ONE ×2 (13:13→14:38)
[2024-07-16] MEDS: levETIRAcetam in NaCl (iso-os) 2,000 MG in Premix Bag 1 BAG IV ONE (13:14)
[2024-07-16] MEDS ORDERED: Ondansetron 4 MG/2 ML SDV IV PRN (14:15)
[2024-07-16] MEDS: Sodium Chloride 0.9% 1,000 ML IV SCH (14:30)
[2024-07-16] MEDS: cefTRIAXone 1 GM Vial IVPUSH SCH (14:37)
[2024-07-16] MEDS: levETIRAcetam in NaCl (iso-os) 500 MG in Premix Bag 1 BAG IV SCH (19:26)
[2024-07-17] MEDS: Dexamethasone 4 MG/ML SDV IVPUSH SCH (07:30)
[2024-07-17 07:41] LABS: EOSINOPHILS ABSOLUTE AUTO 0.01 10^3/uL (0.00-1.50); EOSINOPHILS PERCENT AUTO 0.1 % (0-6); HEMATOCRIT 36.1 % (37.0-47.0); HEMOGLOBIN 12.4 g/dL (12.0-16.0); IMMATURE GRAN ABSOLUTE AUTO 0.14 10^3/uL (0.00-0.49); IMMATURE GRAN PERCENT AUTO 1.6 % (0.0-4.9); LYMPHOCYTES ABSOLUTE AUTO 1.37 10^3/uL (0.60-5.00); LYMPHOCYTES PERCENT AUTO 15.2 % (24-44); MEAN CORPUSCULAR HEMOGLOBIN 31.4 pg (27.0-32.0); MEAN CORPUSCULAR HGB CONC 34.3 g/dL (32.0-36.0); MEAN CORPUSCULAR VOLUME 91.4 fL (83.0-97.0); MONOCYTES ABSOLUTE AUTO 0.32 10^3/uL (0.00-1.50); MONOCYTES PERCENT AUTO 3.6 % (0-10); NEUTROPHILS ABSOLUTE AUTO 7.17 x10^3/uL (1.80-8.00); NEUTROPHILS PERCENT AUTO 79.5 % (41-71); PLATELET COUNT,PLT 369 10^3/uL (150-400); RED BLOOD CELL COUNT 3.95 x10^6/uL (4.00-5.50)
[2024-07-17 08:18] LABS: ALBUMIN 2.6 g/dL (3.4-5.0); BILIRUBIN TOTAL 0.3 mg/dL (0.0-1.0); CALCIUM 8.4 mg/dL (8.4-10.1); CREATININE 0.8 mg/dL (0.6-1.0); EST CRCL DRUG DOSING (CG) 41.4 mL/min; POTASSIUM,K 3.5 mEq/L (3.5-5.0); PROTEIN TOTAL,TP 6.9 g/dL (6.4-8.2)
[2024-07-17] MEDS: Enoxaparin 40 MG/0.4 ML Syringe SUBCUT SCH (11:21)
[2024-07-18] MEDS: Dexamethasone 10 MG/ML SDV IVPUSH SCH (07:39)
[2024-07-18 08:31] LABS: BASOPHILS ABSOLUTE AUTO 0.01 10^3/uL (0.00-0.50); BASOPHILS PERCENT AUTO 0.1 % (0-1); EOSINOPHILS ABSOLUTE AUTO 0.02 10^3/uL (0.00-1.50); EOSINOPHILS PERCENT AUTO 0.2 % (0-6); IMMATURE GRAN ABSOLUTE AUTO 0.18 10^3/uL (0.00-0.49); IMMATURE GRAN PERCENT AUTO 1.6 % (0.0-4.9); LYMPHOCYTES ABSOLUTE AUTO 1.39 10^3/uL (0.60-5.00); LYMPHOCYTES PERCENT AUTO 12.3 % (24-44); MEAN CORPUSCULAR HEMOGLOBIN 31.3 pg (27.0-32.0); MEAN CORPUSCULAR HGB CONC 34.4 g/dL (32.0-36.0); MEAN CORPUSCULAR VOLUME 91.2 fL (83.0-97.0); MONOCYTES ABSOLUTE AUTO 0.87 10^3/uL (0.00-1.50); MONOCYTES PERCENT AUTO 7.7 % (0-10); NEUTROPHILS ABSOLUTE AUTO 8.84 x10^3/uL (1.80-8.00); NEUTROPHILS PERCENT AUTO 78.1 % (41-71); PLATELET COUNT,PLT 360 10^3/uL (150-400); RED BLOOD CELL COUNT 3.51 x10^6/uL (4.00-5.50); WHITE BLOOD CELL COUNT,WBC 11.3 10^3/uL (4.0-11.0)
[2024-07-18 09:03] LABS: ALBUMIN 2.4 g/dL (3.4-5.0); BILIRUBIN TOTAL 0.3 mg/dL (0.0-1.0); C-REACTIVE PROTEIN 8.36 mg/dL (<=0.50); CALCIUM 7.9 mg/dL (8.4-10.1); CREATININE 0.7 mg/dL (0.6-1.0); EST CRCL DRUG DOSING (CG) 47.32 mL/min; POTASSIUM,K 3.5 mEq/L (3.5-5.0); PROTEIN TOTAL,TP 6.2 g/dL (6.4-8.2)
[2024-07-18] MEDS: atorvaSTATin 10 MG Tab PO SCH (19:25)
[2024-07-18] MEDS: Gabapentin 300 MG Cap PO SCH (19:25)
[2024-07-18] MEDS: amLODIPine 10 MG Tab PO SCH (19:25)
[2024-07-19] MEDS: Levothyroxine 88 MCG Tab PO SCH (06:26)
[2024-07-19] MEDS: Sertraline 100 MG Tab PO SCH (07:50)
[2024-07-19] MEDS: Ascorbic Acid 500 MG Tab PO SCH (07:50)
[2024-07-19] MEDS: Cholecalciferol (Vitamin D3) 25 MCG Tab PO SCH (07:50)
[2024-07-19 07:54] LABS: BASOPHILS ABSOLUTE AUTO 0.01 10^3/uL (0.00-0.50); BASOPHILS PERCENT AUTO 0.1 % (0-1); EOSINOPHILS ABSOLUTE AUTO 0.04 10^3/uL (0.00-1.50); EOSINOPHILS PERCENT AUTO 0.4 % (0-6); HEMATOCRIT 32.1 % (37.0-47.0); HEMOGLOBIN 11.2 g/dL (12.0-16.0); IMMATURE GRAN ABSOLUTE AUTO 0.27 10^3/uL (0.00-0.49); IMMATURE GRAN PERCENT AUTO 2.6 % (0.0-4.9); LYMPHOCYTES ABSOLUTE AUTO 2.13 10^3/uL (0.60-5.00); LYMPHOCYTES PERCENT AUTO 20.7 % (24-44); MEAN CORPUSCULAR HEMOGLOBIN 31.4 pg (27.0-32.0); MEAN CORPUSCULAR HGB CONC 34.9 g/dL (32.0-36.0); MEAN CORPUSCULAR VOLUME 89.9 fL (83.0-97.0); MONOCYTES ABSOLUTE AUTO 0.72 10^3/uL (0.00-1.50); NEUTROPHILS PERCENT AUTO 69.2 % (41-71); PLATELET COUNT,PLT 404 10^3/uL (150-400); RED BLOOD CELL COUNT 3.57 x10^6/uL (4.00-5.50); WHITE BLOOD CELL COUNT,WBC 10.3 10^3/uL (4.0-11.0)
[2024-07-19 08:18] LABS: ALBUMIN 2.4 g/dL (3.4-5.0); BILIRUBIN TOTAL 0.3 mg/dL (0.0-1.0); C-REACTIVE PROTEIN 5.03 mg/dL (<=0.50); CREATININE 0.7 mg/dL (0.6-1.0); EST CRCL DRUG DOSING (CG) 47.32 mL/min; POTASSIUM,K 3.1 mEq/L (3.5-5.0); PROTEIN TOTAL,TP 6.1 g/dL (6.4-8.2)
[2024-07-19] MEDS: Potassium Chloride 20 MEQ Tab.ER PO ONE (11:39)
[2024-07-20 08:06] LABS: BASOPHILS ABSOLUTE AUTO 0.01 10^3/uL (0.00-0.50); BASOPHILS PERCENT AUTO 0.1 % (0-1); EOSINOPHILS ABSOLUTE AUTO 0.05 10^3/uL (0.00-1.50); EOSINOPHILS PERCENT AUTO 0.5 % (0-6); HEMOGLOBIN 11.7 g/dL (12.0-16.0); IMMATURE GRAN ABSOLUTE AUTO 0.46 10^3/uL (0.00-0.49); IMMATURE GRAN PERCENT AUTO 4.8 % (0.0-4.9); LYMPHOCYTES PERCENT AUTO 27.3 % (24-44); MEAN CORPUSCULAR HEMOGLOBIN 31.1 pg (27.0-32.0); MEAN CORPUSCULAR HGB CONC 34.4 g/dL (32.0-36.0); MEAN CORPUSCULAR VOLUME 90.4 fL (83.0-97.0); MONOCYTES ABSOLUTE AUTO 0.72 10^3/uL (0.00-1.50); MONOCYTES PERCENT AUTO 7.6 % (0-10); NEUTROPHILS ABSOLUTE AUTO 5.69 x10^3/uL (1.80-8.00); NEUTROPHILS PERCENT AUTO 59.7 % (41-71); PLATELET COUNT,PLT 390 10^3/uL (150-400); RED BLOOD CELL COUNT 3.76 x10^6/uL (4.00-5.50); WHITE BLOOD CELL COUNT,WBC 9.5 10^3/uL (4.0-11.0)
[2024-07-20 08:37] LABS: ALBUMIN 2.4 g/dL (3.4-5.0); BILIRUBIN TOTAL 0.4 mg/dL (0.0-1.0); C-REACTIVE PROTEIN 3.4 mg/dL (<=0.50); CALCIUM 8.3 mg/dL (8.4-10.1); CREATININE 0.7 mg/dL (0.6-1.0); EST CRCL DRUG DOSING (CG) 47.32 mL/min; POTASSIUM,K 3.8 mEq/L (3.5-5.0); PROTEIN TOTAL,TP 6.3 g/dL (6.4-8.2)
[2024-07-21 08:50] VITALS: BP 160/81; PULSE 77
[2024-07-21] MEDS ORDERED: Dexamethasone 4 MG Tab PO SCH (12:00)
[2024-07-21] MEDS ORDERED: Pantoprazole 40 MG Tab.CR PO SCH (17:00)
[2024-07-21] MEDS ORDERED: levETIRAcetam 500 MG Tab PO SCH (20:00)
== END 2024-07-21 11:49 | disposition swing bed (61) | DRG 54 ==
LOC: CC.ED 12:05 → CC.MS 13:33 → UNDOADMIN 14:05 → CC.MS 14:05
PROVIDERS: ADMIT Physician Assistant Medical; ATTEND Physician Assistant Medical
DX: D32.0 Benign neoplasm of cerebral meninges (principal); G93.6 Cerebral edema; N30.00 Acute cystitis without hematuria; E78.00 Pure hypercholesterolemia, unspecified; I10 Essential (primary) hypertension; K21.9 Gastro-esophageal reflux disease without esophagitis; E03.9 Hypothyroidism, unspecified; Z79.890 Hormone replacement therapy; R56.9 Unspecified convulsions; M19.90 Unspecified osteoarthritis, unspecified site; F32.A Depression, unspecified; Z98.890 Other specified postprocedural states; Z92.3 Personal history of irradiation; Z79.02 Long term (current) use of antithrombotics/antiplatelets; Z79.899 Other long term (current) drug therapy
CPT/HCPCS: 12001; 36415; 51702; 70450; 73560-RT; 80053; 81001; 82550; 84484; 85025; 85610; 85730; 86140; 87086; 93005; 93010; 96365; 96375; 97110-GP; 97161-GP; 97530-GP; 99223; 99232; 99233; 99238; 99285-25; A9270-GY; J0696; J1100; J1650; J1953; J7030

== ENCOUNTER 2024-07-21 11:57 | Inpatient (IN) | payer MEDICARE, BC ==
[2024-07-21] MEDS ORDERED: Ondansetron 4 MG/2 ML SDV IV PRN (12:13)
[2024-07-21] MEDS: Gabapentin 300 MG Cap PO SCH (14:25)
[2024-07-21] MEDS: Dexamethasone 4 MG Tab PO SCH (16:08)
[2024-07-21] MEDS: Polyethylene Glycol 3350 Powder 17 GM Packet PO PRN (19:21)
[2024-07-21] MEDS: levETIRAcetam 500 MG Tab PO SCH (19:22)
[2024-07-21] MEDS: atorvaSTATin 10 MG Tab PO SCH (19:22)
[2024-07-21] MEDS: amLODIPine 10 MG Tab PO SCH (19:25)
[2024-07-21] MEDS: Pantoprazole 40 MG Tab.CR PO SCH (20:20)
[2024-07-22] MEDS: Sertraline 100 MG Tab PO SCH (07:35)
[2024-07-22] MEDS: Ascorbic Acid 500 MG Tab PO SCH (07:35)
[2024-07-22] MEDS: Cholecalciferol (Vitamin D3) 25 MCG Tab PO SCH (07:35)
[2024-07-22] MEDS: Levothyroxine 88 MCG Tab PO SCH (07:35)
[2024-07-22] MEDS: Enoxaparin 40 MG/0.4 ML Syringe SUBCUT SCH (12:30)
[2024-07-24] MEDS: Tuberculin, PPD 5 Units/0.1 ML 1 ML MDV IDERM ONE (12:48)
[2024-07-25 07:38] VITALS: BP 163/68; PULSE 84
== END 2024-07-25 10:22 | DRG 947 ==
LOC: CC.MS 11:57 → UNDOADMIN 11:57 → CC.MS 12:16
PROVIDERS: ADMIT Nurse Practitioner Family; ATTEND Nurse Practitioner Family
DX: R53.1 Weakness (principal); G93.6 Cerebral edema; N30.00 Acute cystitis without hematuria; D32.9 Benign neoplasm of meninges, unspecified; R41.82 Altered mental status, unspecified
CPT/HCPCS: 86580; 97110-GP; 97530-GP; 99316; A9270-GY; J1650; J8540